=== PATIENT | female | born 1990 | race Caucasian/White ===

== ENCOUNTER 2019-06-09 07:13 | Emergency (ER) | payer MEDICAID ==
[~2019-06-09] VITALS: Ht 167.6 cm; Wt 68.2 kg
[2019-06-09] MEDS ORDERED: LORazepam 1 MG tablet PO ONE (08:00)
[2019-06-09 09:37] VITALS: BP 127/74
== END 2019-06-09 09:36 | disposition home or self-care (01) ==
LOC: ER 07:14
DX: F41.9 Anxiety disorder, unspecified (principal); F10.129 Alcohol abuse with intoxication, unspecified; F41.0 Panic disorder [episodic paroxysmal anxiety]; Z90.49 Acquired absence of other specified parts of digestive tract
CPT/HCPCS: 99284

== ENCOUNTER 2019-06-09 13:26 | Emergency (ER) | payer OTHER ==
[~2019-06-09] VITALS: Ht 167.6 cm; Wt 68.2 kg
--- NOTE | 2019-06-09 15:03 | NUR ---
PT AWAKE, STATES SHE WANTS "TO UBER". PT STATES SHE MOVED HERE YESTERDAY FROM [facility] FOR [facility]. STATES SHE DRANK A BOTTLE OF WINE BECAUSE SHE WAS SAD, MISSES HER MOM. PT DENIES WANTING TO HURT HERSELF.
--- NOTE | 2019-06-09 16:03 | NUR ---
PT REMAINS AWAKE AND INSISTENT ON GOING HOME. PT'S ROOMMATES ARE HERE NOW AND ABLE TO TRANSPORT HER HOME. PROVIDER WAS IN TO SEE PT IN ROOM 18
[2019-06-09 16:11] VITALS: BP 143/98
== END 2019-06-09 16:13 | disposition home or self-care (01) ==
LOC: ER 13:27
DX: F10.920 Alcohol use, unspecified with intoxication, uncomplicated (principal); Z90.49 Acquired absence of other specified parts of digestive tract; Y90.9 Presence of alcohol in blood, level not specified
CPT/HCPCS: 99283